=== PATIENT | female | born 1970 | race Caucasian/White ===

== ENCOUNTER 2023-05-20 08:08 | Outpatient (AMB) | payer OTHER, MEDICAID, SELFPAY ==
--- NOTE | 2023-05-20 08:36 | MHC.OFFWIV ---
Intake Vital Signs 05/20/23 08:37 Height 5 ft 5 in Weight 210 lb BMI 34.9 BP 140/82 H Blood Pressure Location Lt brachial Position Sitting Pulse 88 Pulse Source Pulse Oximeter Temp 98.5 F Temp Source Oral Pulse Oximetry (%) 98 Oxygen Delivery Method Room Air Intake Visit Reasons: EP COVID+06/13/Cough [id number] Intake Note: pt is here for positive covid on 05/16/23 and states she is not getting better, cough with congestion Patient Tobacco Use Status: Current everyday Tobacco user Allergies meperidine [From DEMEROL] Allergy (Unknown, Verified 05/20/23 08:38) N/V acetaminophen [From Vicodin] Adverse Reaction (Verified 05/20/23 08:38) Nausea hydrocodone [From Vicodin] Adverse Reaction (Verified 05/20/23 08:38) Nausea Do you need a note to return to daycare/school/sports/work: Yes HPI EP COVID+06/13/Cough [id number] HPI Details This is a 53-year-old female patient who presents to the walk-in clinic today for a sick visit. Reports COVID symptoms for the last 6 days. Had a positive COVID test on 05/16. She has been taking DayQuil at home with some minor benefit. Has had a productive cough and intermittent wheezing. Denies known fever, however has been waking up with night sweats. Denies any shortness of breath. Denies any GI symptoms. [facility] Social History Patient Tobacco Use Status: Current everyday Tobacco user Review of Systems Const All systems reviewed & are unremarkable except as noted in HPI and below Physical Exam Vital Signs: BMI result Body Mass Index 34.9 Const General: cooperative and no acute distress HEENT Head: Yes normal to inspection Ears: hearing grossly normal bilaterally General nose exam: Normal external nose present Face and sinus: Yes normal facial exam Mouth: Normal oral and palatal mucosa present Throat: Yes posterior oropharynx abnormal (mild erythema) Neck Neck: Yes no lymphadenopathy Resp Effort & Inspection: normal respiratory effort, able to speak in complete sentences and Actively coughing Quality: productive Auscultation: clear to auscultation bilaterally Cardio Jugular venous distension: no JVD Palpation: normal PMI Rate: regular rate Rhythm: regular rhythm Skin General skin exam: no rashes or lesions noted Extrem General: Yes capillary refill normal and Yes no clubbing, cyanosis or edema Psych Appearance: grossly normal Mental Status: mental status grossly normal Speech and movement: Normal speech and movement present Assessment & Plan Assessment & Plan (1) COVID-19: Code(s): U07.1 - COVID-19 Plan: Reviewed with patient that her symptoms and duration of these are within the expected range for typical COVID-19 infection. I am going to prescribe her benzonatate and also an albuterol inhaler for p.r.n. use for any wheezing or shortness of breath. Reviewed indications, use, possible side effects of medication. Advised she continue [id number] cold/flu medicine as needed for symptom management. Also encouraged rest, increased hydration, increase vitamin C intake, and healthy diet. Work note provided. If she does not begin to improve with additional time and treatment, she should return to the clinic for further evaluation. She verbalizes understanding and agrees to plan. Medications: New benzonatate 100 mg PO BID 7 days PRN 14 caps 0RF cough R05.9 - Cough, unspecified albuterol sulfate 90 mcg/actuation 1 inh inhalation QID PRN 6.7 grams 0RF shortness of breath or wheezing R05.9 - Cough, unspecified, U07.1 - COVID-19 Coding Level of Care Code Est Pt Level 3 (82241) Diagnoses COVID-19 U07.1
[2023-05-20 08:37] VITALS: BP 140/82; PULSE 88; TEMP 36.9; O2SAT 98; BMI 34.9
== END 2023-05-20 09:05 | disposition home or self-care (01) ==
PROVIDERS: PCP Internal Medicine; Visit Provider Nurse Practitioner Family
DX: U07.1 COVID-19 (principal)
CPT/HCPCS: 99213